=== PATIENT | female | born 1955 | race Caucasian/White ===

== ENCOUNTER 2018-08-15 17:28 | Emergency (ER) | payer MEDICAID ==
[2018-08-15 18:09] VITALS: BMI 27.4
[2018-08-15 18:13] VITALS: RESP 18; TEMP 98.2; O2SAT 99
--- NOTE | 2018-08-15 20:12 | ED PDOC ---
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 Pt was walking down a wheelchair ramp when she caught her foot onthe edge of a sidewalk and fell forward on outstretched hands. Experienced immediate epistaxis. Pt admits to headstrike but denies LOC. Currently c/o headache, facial pain, neck pain, lower back pain, left arm pain, and bilateral knee pain. Associated dizziness and nausea. Pt not on blood thinners. Pt states last tetanus booster was 3 years ago. Denies vision changes, vomiting, abdominal pain, chest pain, numbness, weakness, paresthesias, saddle anesthesia, bowel/bladder incontinence, seizure, or any other associated complaints. Past Medical History - Provider Review Nursing Documentation Reviewed: Yes - Cardiac Hx Cardiac Disorders: Yes - Pulmonary Hx Respiratory Disorders: No - Neurological Hx Neurological Disorder: No - HEENT Hx HEENT Disorder: No - Renal Hx Renal Disorder: No - Endocrine/Metabolic Hx Endocrine Disorders: No - Hematological/Oncological Hx Blood Disorders: No - Integumentary Hx Dermatological Disorder: No - Musculoskeletal/Rheumatological Hx Musculoskeletal Disorders: No - Gastrointestinal Hx Gastrointestinal Disorders: No - Genitourinary/Gynecological Hx Genitourinary Disorders: No - Psychiatric Hx Psychophysiologic Disorder: No Hx Substance Use: No - Surgical History Hx Cardiac Catheterization: Yes - Anesthesia Hx Anesthesia: Yes Family/Social History - Physician Review Nursing Documentation Reviewed: Yes Family/Social History: No Known Family HX Smoking Status: Never Smoked Hx Alcohol Use: No Hx Substance Use: No Allergies/Home Meds Allergies/Adverse Reactions: Allergies apple Allergy (Verified 08/15/18 18:12) SHORTNESS OF BREATH chocolate flavor Allergy (Verified 08/15/18 18:12) SHORTNESS OF BREATH grape Allergy (Verified 08/15/18 18:12) SHORTNESS OF BREATH latex Allergy (Verified 08/15/18 18:12) SHORTNESS OF BREATH PORK Allergy (Verified 08/15/18 18:12) SHORTNESS OF BREATH shellfish derived Allergy (Verified 08/15/18 18:13) SHORTNESS OF BREATH Review of Systems - Physician Review All systems were reviewed & negative as marked: Yes - Review of Systems Constitutional: Normal. absent: Fevers Eyes: Normal. absent: Vision Changes ENT: Epistaxis. absent: Hearing Changes, Tinnitus, Sore Throat Respiratory: Normal. absent: SOB, Cough Cardiovascular: Normal. absent: Chest Pain, Palpitations, Syncope Gastrointestinal: Nausea. absent: Abdominal Pain, Vomiting Musculoskeletal: Arthralgias, Back Pain, Neck Pain Skin: Other (abrasions) Neurological: Headache, Dizziness. absent: Focal Weakness, Disequilibrium, Seizure Endocrine: Normal Hemo/Lymphatic: Normal Psychiatric: Normal Physical Exam Vital Signs Reviewed: Yes Vital Signs Temp Pulse Resp BP Pulse Ox 08/15/18 19:37 69 18 138/78 99 08/15/18 18:13 98.2 F 74 18 144/80 99 Temperature: Afebrile Blood Pressure: Normal Pulse: Regular Respiratory Rate: Normal Appearance: Positive for: Well-Appearing, Non-Toxic, Comfortable Pain Distress: None Mental Status: Positive for: Alert and Oriented X 3 - Systems Exam Head: Present: Normocephalic, Tenderness (right zygoma). No: Abrasion, Lacerat ion Pupils: Present: PERRL Extroacular Muscles: Present: EOMI Conjunctiva: Present: Normal Ears: Present: Normal, NORMAL TM, Normal Canal. No: Other (hemotympanum) Mouth: Present: Moist Mucous Membranes, Normal Lips, Normal Tounge, Normal Teeth Pharnyx: Present: Normal. No: ERYTHEMA, EXUDATE Nose (External): Present: Other (tenderness over nasal bridge) Nose (Internal): Present: No Active Bleeding (dried blood below both nares). No: Other (no septal hematoma) Neck: Present: Normal Range of Motion (with pain), MIDLINE TENDERNESS Respiratory/Chest: Present: Clear to Auscultation, Good Air Exchange. No: Respiratory Distress, Accessory Muscle Use Cardiovascular: Present: Regular Rate and Rhythm, Normal S1, S2. No: Murmurs Abdomen: Present: Normal Bowel Sounds. No: Tenderness, Distention, Peritoneal Signs, Rebound, Guarding Back: Present: Normal Inspection, Midline Tenderness (lumbar spine, L3-L5). No: CVA Tenderness, Paraspinal Tenderness Upper Extremity: Present: Normal Inspection, Normal ROM, NORMAL PULSES, Tenderness (left dorsal wrist and over 1st metacarpal; left anterior shoulder), Neurovascularly Intact, Capillary Refill < 2s. No: Cyanosis, Edema, Swelling, Temperature Abnormalties, Other (no snuffbox tenderness bilaterally) Lower Extremity: Present: Normal Inspection, NORMAL PULSES, Normal ROM, Tenderness (left medial ankle; bilateral patella), Neurovascularly Intact, Capillary Refill < 2 s. No: Edema, Swelling, Temperature Abnormalties Neurological: Present: GCS=15, CN II-XII Intact, Speech Normal, Motor Func Grossly Intact, Normal Sensory Function, Normal Cerebellar Funct, Gait Normal Skin: Present: Warm, Dry, Normal Color, Abrasion (very superficial abrasions to bilateral knees). No: Rashes Psychiatric: Present: Alert, Oriented x 3, Normal Insight, Normal Concentration, Normal Affect, Normal Mood Medical Decision Making ED Course and Treatment: Initial Plan: * Maxillofacial CT * Head CT * Cervical Spine CT * Bilateral Knee XR * Left Shoulder XR * Left Wrist XR * Cervical collar * Tylenol * Zofran Cervical collar applied by nursing on arrival. Patient now c/o left ankle pain, will Xray left ankle All xrays negative for acute fracture or dislocation as read by me. CT remarkable for depressed left nasal bone fracture, per [facility]; recommended ENT followup within 2 days. Pt given copies of all diagnostic testing. Also mention possibility of sinusitis, lung nodule, and neurodegenerative disease Pt without symptoms of sinusitis, lung, or neurological symptoms will advise PMD and neurology followup. Patient reports decrease in pain with medication Left thumb spica brace applied by me, neurovascular status unchanged after brace. advised orthopedic followup. Head injury observation instructions discussed with patient and , instructions provided on discharge. Diagnostic testing results and plan of care discussed with patient. Strict instructions given regarding prescription use, importance of followup, and signs/symptoms to return to ER including worsening pain, chest pain, SOB, intractable vomiting, numbness, weakness, paresthesias, or any other new/worsening symptoms. Pt verbalized understanding of discussion. Patient is A&Ox3, ambulating with steady gait, with vital signs stable for discharge. - RAD Interpretation Narrative RAD Interpretations (Text): 08/15/18 20:[address]: FINDINGS: BRAIN No acute intraparenchymal hemorrhage. No mass lesion. No CT evidence for acute territorial infarct. No midline shift or extra-axial collections. There is minimal bifrontal cortical atrophy noted. The possibility of an underlying neurodegenerative disorder should be considered. VENTRICLES: No hydrocephalus. ORBITS: The orbits are unremarkable. SINUSES AND MASTOIDS: A tiny 7.0 mm mucous retention cyst or polyp is seen in the lateral upper left maxillary sinus. Otherwise, the paranasal sinuses and mastoid air cells are clear. BONES: A depressed fracture of the left nasal bone is noted. SOFT TISSUES: Unremarkable. IMPRESSION: 1. No acute intracranial abnormality. 2. Depressed fracture of the left nasal bone. 3. Mild bifrontal cortical atrophy. The possibility of underlying neurodegenerative disorder should be considered. Maxillofacial CT: FINDINGS: BONES: A depressed fracture of the left nasal bone is again noted. No aggressive appearing osseous lesion. The mandible is intact. SOFT TISSUES: The soft tissues are unremarkable. SINUSES: There is mucoperiosteal thickening seen in the inferior maxillary sinuses bilaterally compatible with sinusitis. A 7.0 mm mucous retention cyst or polyp is seen in the upper lateral left maxillary sinus. The remaining sinuses are clear. ORBITS: The orbits are normal. No retrobulbar hematoma or mass. IMPRESSION: 1. Focal depressed fracture of the left nasal bone. 2. Inferior bilateral maxillary sinusitis. Cervical Spine CT: FINDINGS: ALIGNMENT: Bony alignment is anatomic. DEGENERATIVE CHANGES: No significant canal stenosis or neural foraminal narrowing evident. SOFT TISSUES: The prevertebral soft tissues are within normal limits. BONES: No acute fracture or aggressive appearing osseous lesion. UPPER LUNGS: Incidental discovery is made of a 6.1 x 6.7 mm spiculated nodule in the lateral right apex. Consideration could be given to further evaluation by CT thorax. MEDIASTINUM: Incidental discovery is made with a few non-enlarged anterior, superior and middle mediastinal lymph nodes. IMPRESSION: 1. No acute cervical spine abnormality. 2. Incidental discovery of a 6.7 mm spiculated nodule in the lateral right apex . Consideration could be given to correlation with CT thorax evaluation. 3. A few non-enlarged anterior, superior and middle mediastinal lymph nodes are identified. Lumbar Spine CT: FINDINGS: ALIGNMENT: Bony alignment is anatomic. DISCS/DEGENERATIVE CHANGES: T12/L1: No significant central canal or neural foraminal stenosis. L1/L2: No significant central canal or neural foraminal stenosis. L2/L3: No significant central canal or neural foraminal stenosis. L3/4: No significant central canal or neural foraminal stenosis. Mild bilateral apophyseal facet arthropathy. L4/5: No significant central canal or neural foraminal stenosis. Mild bilateral apophyseal facet arthropathy. L5/S1: No significant central canal or neural foraminal stenosis. Mild bilateral apophyseal facet arthropathy. BONES: No acute fracture or aggressive appearing osseous lesion. SOFT TISSUES: The soft tissues are unremarkable. IMPRESSION: 1. No acute lumbar spine abnormality. 2. Mild bilateral apophyseal facet arthropathy at L3-4, L4-5, L5-S1. Radiology Orders: 08/15/18 18:34 CERVICAL SPINE W/O CONTRAST [CT] Stat HEAD W/O CONTRAST [CT] Stat LUMBAR SPINE W/O CONTRAST [CT] Stat MAXILLOFACIAL W/O CONTRAST [CT] Stat KNEE W PATELLA BILAT 3 VIEW [RAD] Stat SHOULDER LEFT [RAD] Stat WRIST, LEFT 3 VIEWS [RAD] Stat 08/15/18 20:05 ANKLE LEFT 3 VIEWS ROUTINE [RAD] Stat [employer] Worker: Radiologist - Medication Orders Current Medication Orders: Discontinued Medications Acetaminophen (Tylenol 325mg Tab) 650 mg PO STAT STA Stop: 08/15/18 20:06 Ondansetron HCl (Zofran Odt) 4 mg PO STAT STA Stop: 08/15/18 20:06 Disposition/Present on Arrival - Present on Arrival Any Indicators Present on Arrival: No History of DVT/PE: No History of Uncontrolled Diabetes: No Urinary Catheter: No History of Decub. Ulcer: No History Surgical Site Infection Following: None - Disposition Have Diagnosis and Disposition been Completed?: Yes Diagnosis: Concussion, Closed head injury, Nasal fracture, Ankle sprain, Wrist sprain Disposition: HOME/ ROUTINE Disposition Time: 21:45 Condition: STABLE Discharge Instructions (ExitCare): Nose Fracture, Ankle Sprain (DC), Concussion, Adult (DC), Wrist Sprain (DC), Head Injury Observation (DC) Additional Instructions: Tylenol/Ibuprofen as needed for pain Followup with ENT tomorrow Followup with orthopedic within 2 days Followup with neurology within 2 days Followup with primary doctor within 2 days Return to ER with any new/worsening symptoms Prescriptions: Ibuprofen [Motrin Tab] 600 mg PO Q8 #30 tab Referrals: Justin Oliveira DO [Staff Provider] - Follow up with primary Neto Mendoza MD [Staff Provider] - Follow up with primary Tobias Massey MD [Staff Provider] - Follow up with primary Sonya Vaughn MD [Medical Doctor] - Follow up with primary Forms: [email or web address] (Persian), WORK NOTE
[2018-08-15 20:46] VITALS: BP 132/71; PULSE 65
--- NOTE | 2018-08-16 07:58 | CT ---
Date of service: 08/15/2018 PROCEDURE: CT HEAD WITHOUT CONTRAST. HISTORY: fall, dizzy, nauseous COMPARISON: None available. TECHNIQUE: Axial computed tomography images were obtained through the head/brain without intravenous contrast. Radiation dose: Total exam DLP = 899.43 mGy-cm. This CT exam was performed using one or more of the following dose reduction techniques: Automated exposure control, adjustment of the mA and/or kV according to patient size, and/or use of iterative reconstruction technique. FINDINGS: HEMORRHAGE: No intracranial hemorrhage. BRAIN: No mass effect or edema. No atrophy or chronic microvascular ischemic changes. VENTRICLES: Unremarkable. No hydrocephalus. CALVARIUM: There is a depressed fracture of the left nasal bone PARANASAL SINUSES: Unremarkable as visualized. No significant inflammatory changes. MASTOID AIR CELLS: Unremarkable as visualized. No inflammatory changes. OTHER FINDINGS: The report concurs with the preliminary [facility] report IMPRESSION: No acute intracranial findings Depressed fracture of the left nasal bone
--- NOTE | 2018-08-16 08:01 | CT ---
Date of service: 08/15/2018 PROCEDURE: CT MAXILLOFACIAL BONES WITHOUT CONTRAST HISTORY: fall, epistaxis, facial injury COMPARISON: None available. TECHNIQUE: Contiguous axial CT images of the maxillofacial bones were obtained. Coronal and sagittal reformats were generated. Radiation dose: Total exam DLP = 778.72 mGy-cm. This CT exam was performed using one or more of the following dose reduction techniques: Automated exposure control, adjustment of the mA and/or kV according to patient size, and/or use of iterative reconstruction technique. FINDINGS: NASAL BONES: Depressed fracture of the left nasal bone ORBITS: Unremarkable. PARANASAL SINUSES/ MASTOIDS: Minimal mucosal thickening in the maxillary sinuses MAXILLA: Unremarkable. MANDIBLE/ TEMPOROMANDIBULAR JOINTS: Unremarkable. SKULL BASE: Unremarkable. TEMPORAL BONES: Middle ears and mastoid grossly unremarkable. OTHER FINDINGS: The report concurs with the preliminary [facility] report IMPRESSION: Depressed fracture of the left nasal bone
--- NOTE | 2018-08-16 08:04 | CT ---
Date of service: 08/15/2018 PROCEDURE: CT Cervical Spine without contrast HISTORY: fall, midline neck pain COMPARISON: None available. TECHNIQUE: Axial computed tomography images were obtained of the cervical spine without the use of intravenous contrast. Coronal and sagittal reformatted images were created and reviewed. Radiation dose: Total exam DLP = 542.47 mGy-cm. This CT exam was performed using one or more of the following dose reduction techniques: Automated exposure control, adjustment of the mA and/or kV according to patient size, and/or use of iterative reconstruction technique. FINDINGS: VERTEBRAE: No fracture. Normal alignment. No destructive bony lesion. DISCS/SPINAL CANAL/NEURAL FORAMINA: No significant central canal or neural foraminal stenosis. Discs heights are grossly preserved. PARASPINAL SOFT TISSUES: There is a 6 mm irregular nodule in the right lung apex. Follow-up is recommended OTHER FINDINGS: The report concurs with the preliminary [facility] report IMPRESSION: There is a 6 mm irregular nodule in the right lung apex. Follow-up is recommended No acute abnormalities in the cervical spine
--- NOTE | 2018-08-16 08:30 | CT ---
Date of service: 08/15/2018 PROCEDURE: CT Lumbar Spine without contrast HISTORY: fall, midline lumbar pain COMPARISON: None available. TECHNIQUE: Axial computed tomography images were obtained of the lumbar spine without the use of intravenous contrast. Coronal and sagittal reformatted images were created and reviewed. Radiation dose: Total exam DLP = 1608.87 mGy-cm. This CT exam was performed using one or more of the following dose reduction techniques: Automated exposure control, adjustment of the mA and/or kV according to patient size, and/or use of iterative reconstruction technique. FINDINGS: VERTEBRAE: Unremarkable. No fracture. Normal alignment. DISCS/SPINAL CANAL/NEURAL FORAMINA: L1-2: Unremarkable. L2-3: Unremarkable. L3-4: Unremarkable. L4-5: Unremarkable. L5-S1: Unremarkable. PARASPINAL SOFT TISSUES: Unremarkable. OTHER FINDINGS: The report concurs with the preliminary [facility] report IMPRESSION: Unremarkable CT of Lumbar Spine.
--- NOTE | 2018-08-16 09:25 | RAD ---
Date of service: 08/15/2018 PROCEDURE: Left Ankle Radiographs. HISTORY: fall, left ankle pain, lateral COMPARISON: None available. FINDINGS: BONES: Normal. No fracture. JOINTS: Normal. No osteoarthritis. Ankle mortise maintained. Talar dome intact SOFT TISSUES: Normal. OTHER FINDINGS: None. IMPRESSION: Normal left ankle radiographs.
--- NOTE | 2018-08-16 11:39 | RAD ---
Date of service: 08/15/2018 PROCEDURE: Bilateral Knee Radiographs. HISTORY: fall, knee pain COMPARISON: None. FINDINGS: BONES: Right Knee: Normal. No fracture. Left Knee: Normal. No fracture. JOINTS: Right Knee: Normal. No osteoarthritis. Left knee: Normal. No osteoarthritis. SOFT TISSUES: Right Knee: Normal. Left Knee: Normal. JOINT EFFUSION: Right Knee: None. Left Knee: None. OTHER FINDINGS: None. IMPRESSION: Normal radiographs of the knees.
--- NOTE | 2018-08-16 11:40 | RAD ---
Date of service: 08/15/2018 PROCEDURE: Left Wrist Radiographs. HISTORY: fall, left wrist pain COMPARISON: None. FINDINGS: BONES: Normal. No fracture. JOINTS: Normal. No dislocation. SOFT TISSUES: Normal. OTHER FINDINGS: None. IMPRESSION: Normal left wrist radiographs.
--- NOTE | 2018-08-16 11:40 | RAD ---
Date of service: 08/15/2018 PROCEDURE: Radiographs of the Left Shoulder HISTORY: fall, left shoulder pain COMPARISON: No prior. FINDINGS: BONES: Normal. No fracture. JOINTS: Normal. Glenohumeral and acromioclavicular joints preserved. No osteoarthritis. SOFT TISSUES: Normal. OTHER FINDINGS: None. IMPRESSION: Normal radiographs of the left shoulder.
== END 2018-08-15 21:50 | disposition home or self-care (01) ==
LOC: ED 17:28
DX: S02.2XXA Fracture of nasal bones, initial encounter for closed fracture (principal); S09.90XA Unspecified injury of head, initial encounter; S93.402A Sprain of unspecified ligament of left ankle, initial encounter; S63.502A Unspecified sprain of left wrist, initial encounter; W18.30XA Fall on same level, unspecified, initial encounter; Y93.01 Activity, walking, marching and hiking; I10 Essential (primary) hypertension